=== PATIENT | male | born 1955 | race Caucasian/White ===

== ENCOUNTER → 2025-02-15 | Outpatient (CLI) | payer BC, SELFPAY ==
--- NOTE | 2025-02-15 16:00 | XR_ITS ---
Examination: CT chest without high resolution CT low-dose, 2-D sagittal reconstructions. 2-D coronal reconstructions. 3-D reconstructions. Date and time of exam: January, 1548 hours INDICATIONS: Encounter for screening for malignant neoplasm of lung field, smoking history 40 years shortness of breath 1 month CTDI: vol (mGy): 12 DLP: (mGycm): 446 Technique: Multiple 1.25 mm axial sections of the lung low dose screening have been obtained. 2-D sagittal and coronal reconstructions have been obtained. 3-D reconstructions have been obtained. Low dose protocols were performed. One or more of the following dose reduction techniques were used; automated exposure control, adjustment of the mA and/or KV according to patient size, use of iterative reconstruction technique. Findings: Thoracic aortic calcification no aneurysmal dilatation Pulmonary artery segments are not enlarged No paratracheal tracheobronchial or bronchopulmonary adenopathy. 3 mm pulmonary nodule right upper lobe image 76 2 mm pulmonary nodule left upper lobe image 103 2 mm pulmonary nodule right lower lobe image 245 No pneumonia or pulmonary edema No visualized liver or splenic lesion No gallstones No pancreatic or adrenal mass No hydronephrosis IMPRESSION: Subcentimeter pulmonary nodules as above, with the studies baseline recommend 6-month follow-up CT chest without contrast
== END | disposition home or self-care (01) ==
PROVIDERS: PCP Physician Assistant Medical; Referring Provider Physician Assistant Medical; Visit Provider Physician Assistant Medical
DX: Z12.2 Encounter for screening for malignant neoplasm of respiratory organs (principal); R91.8 Other nonspecific abnormal finding of lung field; Z87.891 Personal history of nicotine dependence
CPT/HCPCS: 71271